=== PATIENT | female | born 1960 ===

== ENCOUNTER 2018-07-17 13:53 | Emergency (ER) | payer MEDICARE, OTHER ==
[2018-07-17 15:12] VITALS: BMI 28.3
[2018-07-17 16:37] LABS: ALB/GLOB RATIO 1.2 (1.1-1.8); ALBUMIN 3.9 g/dL (3.0-4.8); ALT/SGPT 21 U/L (7-56); AST/SGOT 24 U/L (14-36); BLOOD UREA NITROGEN 16 mg/dL (7-21); CALCIUM 8.9 mg/dL (8.4-10.5); GFR NON-AFRICAN AMERICAN > 60
[2018-07-17 17:03] LABS: BASO # 0.07 {null, K/mm3} (0.0-2.0); EOS # 0.2 (0.0-0.7); EOS % 2.5 % (1.5-5.0); HEMOGLOBIN 13.7 g/dL (12.0-16.0); LYMPH # 2.2 (1.2-3.4); LYMPH % 31.7 % (22.0-35.0); MEAN CELL VOLUME 92.3 fl (80.0-105.0); MEAN CORPUSCULAR HEMOGLOBIN 29.2 pg (25.0-35.0); MEAN CORPUSCULAR HGB CONC 31.6 g/dl (31.0-37.0); MEAN PLATELET VOLUME 10.6 fl (7.0-11.0); MONO # 0.6 (0.1-0.6); MONO % 8.1 % (1.0-6.0); RBC 4.69 {null, 10^6/uL} (3.5-6.1); RED CELL DISTRIBUTION WIDTH 13.5 % (11.5-14.5); WHITE BLOOD COUNT 7.1 {null, 10^3/uL} (4.5-11.0)
[2018-07-17 17:21] VITALS: RESP 18
--- NOTE | 2018-07-17 17:33 | CT ---
Date of service: 07/17/2018 PROCEDURE: CT HEAD WITHOUT CONTRAST. HISTORY: dizziness, Hx NPH s/p right frontal shunt COMPARISON: None available. TECHNIQUE: Axial computed tomography images were obtained through the head/brain without intravenous contrast. Radiation dose: Total exam DLP = 965.13 mGy-cm. This CT exam was performed using one or more of the following dose reduction techniques: Automated exposure control, adjustment of the mA and/or kV according to patient size, and/or use of iterative reconstruction technique. FINDINGS: HEMORRHAGE: No intracranial hemorrhage. BRAIN: No mass effect or edema. The stevenson-white matter differentiation appears intact. Please note that MRI with diffusion imaging is more sensitive in the detection of acute ischemic event. VENTRICLES: Right frontal WELDING MACHINE OPERATOR ULTRASONIC shunt catheter appears to terminate at the level of the foramen of Monro. Ventricles appear slit like. No hydrocephalus. CALVARIUM: Unremarkable. PARANASAL SINUSES: Unremarkable as visualized. No significant inflammatory changes. MASTOID AIR CELLS: Unremarkable as visualized. No inflammatory changes. OTHER FINDINGS: None. IMPRESSION: Right frontal WELDING MACHINE OPERATOR ULTRASONIC shunt catheter appears to terminate at the level of the foramen of Monro. Ventricles appear slit like. No hydrocephalus.
--- NOTE | 2018-07-17 17:38 | ED PDOC ---
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 She states the itchiness is mostly in her neck and upper extremities and symptoms are worse at night. Patient also admits to dizziness which has been ongoing for the past month. Dizziness is constant and aggravated by positional changes in addition to when she closes her eyes. She also admits to moderate loss of hearing one year ago which she has been evaluated by ENT and due to get hearing aids. Admits to urinary inc ontinence. Denies fevers, chills, chest pain, shortness of breath, abdominal pain, diarrhea. Time/Duration: > month Symptom Onset: Sudden Symptom Course: Unchanged Severity Level: Moderate <Meng Galan L - Last Filed: 07/17/18 18:33> <Cain Wong - Last Filed: 07/17/18 18:43> - General Chief Complaint: Dizziness/Lightheaded Time Seen by Provider: 07/17/18 13:57 Past Medical History - Provider Review Nursing Documentation Reviewed: Yes - Infectious Disease Hx of Infectious Diseases: None - Reproductive Menopause: Yes - Cardiac Hx Hypertension: Yes - Pulmonary Hx Asthma: Yes (NO MED AT PRESENT) - Neurological Hx Neurological Disorder: Yes Hx Dizziness: Yes - HEENT Hx HEENT Disorder: No Other/Comment: Deaf both ears - Renal Hx Renal Disorder: No - Endocrine/Metabolic Hx Endocrine Disorders: No - Hematological/Oncological Hx Blood Disorders: Yes - Integumentary Hx Dermatological Disorder: No - Musculoskeletal/Rheumatological Hx Arthritis: Yes - Gastrointestinal Hx Gastrointestinal Ulcer: Yes - Genitourinary/Gynecological Other/Comment: FREQUENT URINATION - Psychiatric Hx Anxiety: Yes Hx Depression: Yes Hx Substance Use: No - Surgical History Other/Comment: Pt states she had a shunt in her head; unknown reason. - Anesthesia Hx Anesthesia: Yes Hx Anesthesia Reactions: No Hx Malignant Hyperthermia: No - Suicidal Assessment Feels Threatened In Home Enviroment: No <Meng Galan - Last Filed: 07/17/18 18:33> Family/Social History - Physician Review Nursing Documentation Reviewed: Yes Family/Social History: No Known Family HX Smoking Status: Never Smoked Hx Alcohol Use: No Hx Substance Use: No <Meng Galan L - Last Filed: 07/17/18 18:33> Allergies/Home Meds <Meng Galan - Last Filed: 07/17/18 18:33> <Cain Wong L - Last Filed: 07/17/18 18:43> Allergies/Adverse Reactions: Allergies No Known Allergies Allergy (Verified 01/26/18 05:16) Home Medications: Home Meds Medication Instructions Recorded Confirmed Emtricitabine/Tenofovir Diso 1 tab PO DAILY 04/04/15 11/02/17 [Truvada 200 MG-300 MG] Multivit,Calc,Mins/Iron/Folic 1 tab PO DAILY 04/04/15 11/02/17 [One-A-Day Women's] Raltegravir Potassium [Isentress] 400 mg PO BID 04/04/15 11/02/17 Sertraline [Zoloft] 200 mg PO HS 04/04/15 11/02/17 clonazePAM [clonAZEPAM] 1 mg PO DAILY 07/19/17 11/02/17 Enalapril Maleate [Vasotec] 5 mg PO DAILY 11/02/17 11/02/17 Meclizine HCl 12.5 mg PO DAILY PRN 11/02/17 11/02/17 hydrOXYzine HCl [Atarax] 10 mg PO DAILY PRN 11/02/17 11/02/17 Review of Systems - Physician Review All systems were reviewed & negative as marked: Yes - Review of Systems Constitutional: Normal ENT: Other (loss of hearing) Respiratory: Normal Cardiovascular: Normal Gastrointestinal: Normal Genitourinary Female: Other (urinary incontinence) Skin: Pruritis Neurological: Dizziness <Megn Galan L - Last Filed: 07/17/18 18:33> Physical Exam Vital Signs Reviewed: Yes Vital Signs Temp Pulse Resp BP Pulse Ox 07/17/18 14:00 98.2 F 88 18 148/90 99 Temperature: Afebrile Blood Pressure: Normal Pulse: Regular Respiratory Rate: Normal Appearance: Positive for: Well-Appearing, Comfortable Pain Distress: None Mental Status: Positive for: Alert and Oriented X 3 - Systems Exam Head: Present: Atraumatic, Normocephalic Pupils: Present: PERRL Extroacular Muscles: Present: EOMI Conjunctiva: Present: Normal Ears: Present: Normal Mouth: Present: Moist Mucous Membranes Respiratory/Chest: Present: Clear to Auscultation, Good Air Exchange. No: Respiratory Distress, Accessory Muscle Use Cardiovascular: Present: Regular Rate and Rhythm, Normal S1, S2. No: Tachycardic Abdomen: Present: Normal Bowel Sounds. No: Tenderness, Distention, Peritoneal Signs, Rebound Lower Extremity: Present: Normal Inspection. No: Edema Neurological: Present: GCS=15, CN II-XII Intact, Speech Normal, Motor Func Grossly Intact, Normal Sensory Function, Other (horizontal nystagmus) Skin: Present: Warm, Dry Psychiatric: Present: Alert, Oriented x 3 <Meng Galan L - Last Filed: 07/17/18 18:33> Vital Signs Temp Pulse Resp BP Pulse Ox 07/17/18 14:00 98.2 F 88 18 148/90 99 Temperature: Afebrile Blood Pressure: Normal Pulse: Regular Respiratory Rate: Normal Appearance: Positive for: Well-Appearing, Non-Toxic, Comfortable Pain Distress: None Mental Status: Positive for: Alert and Oriented X 3 - Systems Exam Head: Present: Atraumatic, Normocephalic Pupils: Present: PERRL Extroacular Muscles: Present: EOMI Conjunctiva: Present: Normal Mouth: Present: Moist Mucous Membranes Neck: Present: Normal Range of Motion Respiratory/Chest: Present: Clear to Auscultation, Good Air Exchange. No: Respiratory Distress, Accessory Muscle Use Cardiovascular: Present: Regular Rate and Rhythm, Normal S1, S2. No: Murmurs Abdomen: No: Tenderness, Distention, Peritoneal Signs Back: Present: Normal Inspection Upper Extremity: Present: Normal Inspection. No: Cyanosis, Edema Lower Extremity: Present: Normal Inspection. No: Edema Neurological: Present: GCS=15, CN II-XII Intact, Speech Normal, Motor Func Grossly Intact, Normal Sensory Function, Other Skin: Present: Warm, Dry, Normal Color. No: Rashes Psychiatric: Present: Alert, Oriented x 3, Normal Insight, Normal Concentration <Cain Wong L - Last Filed: 07/17/18 18:43> Medical Decision Making ED Course and Treatment: 07/17/18 17:41 Impression: 58 year old female with dizziness and pruritis Plan: - CBC, CMP - Benadryl - Shuntogram - CT head w/o contrast - Orthostatics - Urinalysis - Reassess and disposition Prior Visits: Notes and results from previous visits were reviewed. Progress Notes: 07/17/18 17:41 Records from [facility] Radiology reviewed. MRI from 05/2018 shows chronic microvascular changes in periventricular white matter. Right frontal ventricular catheter that terminates near the foramen of Monro. No evidence of hydrocephalus. IAC's unremarkable. Audiological evaluation from 11/2017 showed sensorineural hearing loss. 07/17/18 17:53 Patient reports improvement in symptoms. Labs and imaging reviewed. Patient hemodynamically stable and optimized for discharge and follow up with primary medical doctor. Patient in agreement with plan of management. - Lab Interpretations Lab Results: Total Bilirubin 0.3 mg/dL (0.2-1.3) 07/17/18 16:15 AST 24 U/L (14-36) 07/17/18 16:15 ALT 21 U/L (7-56) 07/17/18 16:15 Alkaline Phosphatase 82 U/L (38-126) 07/17/18 16:15 Total Protein 7.3 g/dL (5.8-8.3) 07/17/18 16:15 Albumin 3.9 g/dL (3.0-4.8) 07/17/18 16:15 Globulin 3.4 gm/dL 07/17/18 16:15 Albumin/Globulin Ratio 1.2 (1.1-1.8) 07/17/18 16:15 - RAD Interpretation Radiology Orders: 07/17/18 15:15 HEAD W/O CONTRAST [CT] Stat SHUNTOGRAM [RAD] Stat 07/17/18 16:42 SHUNTOGRAM [RAD] Stat 07/17/18 16:50 SHUNTOGRAM [RAD] Stat - Medication Orders Current Medication Orders: Discontinued Medications Diphenhydramine HCl (Benadryl) 50 mg PO STAT STA Stop: 07/17/18 15:23 Last Admin: 07/17/18 16:00 Dose: 50 mg <Meng Galan - Last Filed: 07/17/18 18:33> ED Course and Treatment: 07/17/18 17:55 Patient reports dizziness has resolved. Rash noted has improved. Patient was educated about use of benadryl for rash. She has been instructed to look for allergens and possible bug bites. Patient Seen with Resident: In agreement with resident note which contains more details about the patient. Patient seen and evaluated with resident. Came up with plan and treatment together. - Lab Interpretations Lab Results: Total Bilirubin 0.3 mg/dL (0.2-1.3) 07/17/18 16:15 AST 24 U/L (14-36) 07/17/18 16:15 ALT 21 U/L (7-56) 07/17/18 16:15 Alkaline Phosphatase 82 U/L (38-126) 07/17/18 16:15 Total Protein 7.3 g/dL (5.8-8.3) 07/17/18 16:15 Albumin 3.9 g/dL (3.0-4.8) 07/17/18 16:15 Globulin 3.4 gm/dL 07/17/18 16:15 Albumin/Globulin Ratio 1.2 (1.1-1.8) 07/17/18 16:15 - RAD Interpretation Narrative RAD Interpretations (Text): 07/17/18 17:[address] -- Right frontal MEDICAL GENETICIST shunt catheter appears to terminate at the level of the foramen of Monro. Ventricles appear slit like. No hydrocephalus. Radiology Orders: 07/17/18 15:15 HEAD W/O CONTRAST [CT] Stat SHUNTOGRAM [RAD] Stat 07/17/18 16:42 SHUNTOGRAM [RAD] Stat 07/17/18 16:50 SHUNTOGRAM [RAD] Stat Trip Motor Operator: Radiologist - Medication Orders Current Medication Orders: Discontinued Medications Diphenhydramine HCl (Benadryl) 50 mg PO STAT STA Stop: 07/17/18 15:23 Last Admin: 07/17/18 16:00 Dose: 50 mg <Cain Wong - Last Filed: 07/17/18 18:43> - PA / INSET CUTTER / Resident Statement / has reviewed & agrees with the documentation as recorded. / has examined the patient and agrees with the treatment plan. <Cain Wong - Last Filed: 07/17/18 18:43> Disposition/Present on Arrival - Present on Arrival Any Indicators Present on Arrival: No History of DVT/PE: No History of Uncontrolled Diabetes: No Urinary Catheter: No History of Decub. Ulcer: No History Surgical Site Infection Following: None - Disposition Have Diagnosis and Disposition been Completed?: Yes Disposition Time: 17:52 <Meng Galan L - Last Filed: 07/17/18 18:33> <Cain Wong L - Last Filed: 07/17/18 18:43> - Disposition Diagnosis: Dizziness, Itching Disposition: HOME/ ROUTINE Patient Problems: Current Active Problems Problem Status Onset Dizziness Acute Itching Acute Condition: STABLE Discharge Instructions (ExitCare): Itchy Skin Additional Instructions: Please follow up with your primary medical doctor within 1 week. Resume your home medications as prescribed. Return to ED if symptoms return or worsen. Forms: [employer] (Greek)
--- NOTE | 2018-07-17 17:45 | RAD ---
Date of service: 07/17/2018 PROCEDURE: Shuntogram, three views HISTORY: DIZZINESS, HX NPH S/P RT FRONTAL SHUNT COMPARISON: None TECHNIQUE: Standard protocol for this study/examination. FINDINGS: The shunt catheter is visible coursing through the right neck, soft tissues of the right thorax into the abdomen. There is no evidence of kinking, discontinuous components. IMPRESSION: Normal appearance of the shunt catheter as visualized.
[2018-07-17 18:13] VITALS: BP 147/88; PULSE 70; TEMP 98.7; O2SAT 97
== END 2018-07-17 18:48 | disposition home or self-care (01) ==
LOC: ED 13:53
DX: R42 Dizziness and giddiness (principal); L29.9 Pruritus, unspecified; I10 Essential (primary) hypertension; H91.93 Unspecified hearing loss, bilateral; Z98.2 Presence of cerebrospinal fluid drainage device